=== PATIENT | male | born 1990 | race Caucasian/White ===

== ENCOUNTER 2023-07-16 14:31 | Emergency (ER) | payer BC, OTHER ==
--- NOTE | 2023-07-16 14:50 | ERPHSYRPT ---
- History of Present Illness Time Seen by Provider: 07/16/23 14:52 Source: patient Exam Limitations: no limitations Patient Subjective Stated Complaint: Pt states "I didn't duck low enough and hit my head on a sprayer" Triage Nursing Assessment: Pt presented alert and oriented X 3, skin pwd. pt ambulates with an upright steady gait, able to speak in clear full senetences. PT has v shaped laceration noted to tip of head Physician History: 33-year-old male presents to our ED for evaluation of scalp laceration. [place] when he was crouching down and then stood up and injured the top of the scalp with a sensor. Injury occurred just prior to arrival. No LOC. Patient declined a CT of his head. Patient felt it was not necessary he only wants his scalp laceration repaired. Patient has no neurologic complaints. No headache. No nausea vomiting or diaphoresis. Symptoms are moderate in intensity. Pain worse with palpation to the scalp. There is no bony step-off. Patient voices no other complaints or concerns at this time. Portions of this note were created with voice recognition technology. There may be grammatical, spelling, punctuation or sound alike errors Timing/Duration: today Severity: moderate Modifying Factors: Improves With: nothing Associated Symptoms: denies symptoms Allergies/Adverse Reactions: No Known Drug Allergies Allergy (Verified 07/16/23 14:39) Home Medications: No Reportable Medications [No Reported Medications] 07/16/23 [History] Hx Tetanus, Diphtheria Vaccination/Date Given: No Hx Influenza Vaccination/Date Given: No Hx Pneumococcal Vaccination/Date Given: No Immunizations Up to Date: No Travel Risk - International Travel Have you traveled outside of the country in past 3 weeks: No - Emerging Infectious Disease Are you exhibiting symptoms associated with any current EIDs: No - Review of Systems Constitutional: No Symptoms, No Fever, No Chills Eyes: No Symptoms Ears, Nose, & Throat: No Symptoms Respiratory: No Symptoms, No Cough, No Dyspnea Cardiac: No Symptoms, No Chest Pain, No Edema, No Syncope Abdominal/Gastrointestinal: No Symptoms, No Abdominal Pain, No Nausea, No Vomiting, No Diarrhea Genitourinary Symptoms: No Symptoms, No Dysuria Musculoskeletal: No Symptoms, No Back Pain, No Neck Pain Skin: No Symptoms, No Rash Neurological: No Symptoms, No Dizziness, No Focal Weakness, No Sensory Changes Psychological: No Symptoms Endocrine: No Symptoms Hematologic/Lymphatic: No Symptoms Immunological/Allergic: No Symptoms All Other Systems: Reviewed and Negative - Past Medical History Pertinent Past Medical History: No - Past Surgical History Past Surgical History: No - Social History Smoking Status: Never smoker Exposure to second hand smoke: No Drug Use: none - Nursing Vital Signs Nursing Vital Signs: Initial Vital Signs Temperature 97.4 F 07/16/23 14:34 Pulse Rate 107 H 07/16/23 14:34 Respiratory Rate 18 07/16/23 14:34 Blood Pressure 153/97 07/16/23 14:34 O2 Sat by Pulse Oximetry 96 07/16/23 14:34 Pain Scale Pain Intensity 1 - Physical Exam General Appearance: no apparent distress, alert Eye Exam: PERRL/EOMI, eyes nml inspection Ears, Nose, Throat Exam: normal ENT inspection, TMs normal, pharynx normal, moist mucous membranes Neck Exam: normal inspection, non-tender, supple, full range of motion Respiratory Exam: normal breath sounds, lungs clear, airway intact, No respiratory distress Cardiovascular Exam: regular rate/rhythm, normal peripheral pulses Gastrointestinal/Abdomen Exam: soft, normal bowel sounds, No tenderness, No mass Back Exam: normal inspection, normal range of motion, No CVA tenderness, No vertebral tenderness Extremity Exam: normal inspection, normal range of motion, pelvis stable Neurologic Exam: alert, oriented x 3, cooperative, normal mood/affect, nml cerebellar function, nml station & gait, sensation nml, No motor deficits Skin Exam: normal color, warm, dry, No rash Lymphatic Exam: No adenopathy SpO2 Interpretation: normal SpO2: 96 O2 Delivery: Room Air - Course Nursing assessment & vital signs reviewed: Yes - Progress Progress: improved Progress Note: 33-year-old male presents to our ED with a scalp laceration. Patient declined local anesthesia. We placed 8 warern. Patient declined oral pain medication postprocedure. Patient tolerated procedure well. No intra or postprocedural complications. [place] are to be removed in a week's time. No indication for antibiotics. Patient will follow-up with his primary care doctor within 48 hours for reevaluation. Please see procedure note for details. Portions of this note were created with voice recognition technology. There may be grammatical, spelling, punctuation or sound alike errors Complexity problem addressed is moderate acute complicated No critical care time Complexity of data reviewed and analyzed is none. No specialized testing ordered. Diagnosis made based on history and physical exam. Risk of complication and or risk of morbidity/mortality patient management is low. Stable. Time spent to discharge patient is approximately 20 minutes. Plan of care established for shared decision making. No social determinants of health present to impede follow-up Portions of this note were created with voice recognition technology. There may be grammatical, spelling, punctuation or sound alike errors 07/16/23 14:57 Counseled pt/family regarding: diagnosis, need for follow-up - Departure Departure Disposition: Home Clinical Impression: Scalp laceration Condition: Stable Critical Care Time: No Referrals: DOCTOR,NO FAMILY [Primary Care Provider] - Follow up/PCP as directed MICHAEL WOODSON MD [ACTIVE STAFF] - Follow up/PCP as directed Additional Instructions: Discharge/Care Plan SAMIA LEONE was seen on 07/16/23 in the Emergency Room. The patient was counseled regarding Diagnosis,Lab results, Imaging studies, need for follow up and when to return to the Emergency Room. Prescriptions given: Discharge Note I have spoken with the patient and/or caregivers. I have explained the patient's condition, diagnosis and treatment plan based on the information available to me at this time. I have answered the patient's and/or caregiver's questions and addressed any concerns. The patient and/or caregivers have as good understanding of the patient's diagnosis, condition and treatment plan as can be expected at this point. The vital signs have been stable. The patient's condition is stable and appropriate for discharge from the emergency department. The patient will pursue further outpatient evaluation with the primary care physician or other designated or consulting physician as outlined in the discharge instructions. The patient and/or caregivers are agreeable to this plan of care and follow-up instructions have been explained in detail. The patient and/or caregivers have received these instruction. The patient/and or caregivers are aware that any significant change in condition or worsening of symptoms should prompt an immediate return to this or the closest emergency department or call 911.
[2023-07-16 14:55] VITALS: BP 152/88; PULSE 92; RESP 20; TEMP 97.8
[2023-07-16 14:57] VITALS: O2SAT 96
== END 2023-07-16 15:20 | disposition home or self-care (01) ==
LOC: ED 14:31
DX: S01.01XA Laceration without foreign body of scalp, initial encounter (principal); Y28.8XXA Contact with other sharp object, undetermined intent, initial encounter
CPT/HCPCS: 12002; 99281